=== PATIENT | female | born 1995 | race Caucasian/White ===

== ENCOUNTER 2016-05-05 10:57 | Emergency (ER) | payer MEDICAID ==
[2016-05-05] MEDS ORDERED: PHENAZOPYRIDINE 100 MG TABLET PO STA (12:10)
[2016-05-05] MEDS ORDERED: PHENAZOPYRIDINE 100 MG TABLET PO ONE (12:17)
== END 2016-05-05 12:21 | disposition home or self-care (01) ==
DX: N30.01 Acute cystitis with hematuria (principal); Z87.440 Personal history of urinary (tract) infections; F17.200 Nicotine dependence, unspecified, uncomplicated
CPT/HCPCS: 81001; 81025; 87077; 87086; 87181; 99283; A9270